=== PATIENT | female | born 1985 | race Caucasian/White ===

== ENCOUNTER 2018-02-25 00:10 | Observation (INO) | payer OTHER ==
[2018-02-13 16:05] LABS: PLATELET COUNT, AUTOMATED 275 K/uL (150-450)
[~2018-02-25] VITALS: Ht 160 cm; Wt 77.1 kg
[2018-02-25] VITALS (14 sets, daily range): BP systolic 107–129; BP diastolic 57–102
[~2018-02-25 00:10] MED LIST: AZIT-9 PO; BUTA-324 PO; D-ME118S34 PO; DOCU-416 PO; DOXY150T6 PO; HYDR2TAB4 PO; IBU600 PO; IBUP800T37 PO; METH0.2T6 PO; MULT1TAB64 PO; NITR-105 PO; OXYC-865 PO; PHEN200T32 PO; PNV1TABL92 PO; TRA50 PO; cefOXitin/DEX(*) 2GM/50ML PREM 50 ML IVPB ONE
[2018-02-25 06:30] LABS: PLATELET COUNT, AUTOMATED 281 K/uL (150-450)
[2018-02-25] MEDS ORDERED: NORMOSOL R SOLN(*) 1000 ML BAG 1,000 ML IV PRN (06:30)
[2018-02-25] MEDS ORDERED: cefOXitin/DEX(*) 2GM/50ML PREM 50 ML IVPB ONE (06:30)
[2018-02-25] MEDS ORDERED: MIDAZOLAM 2 MG/2 ML VIAL IVP PRN (06:30)
[2018-02-25] MEDS ORDERED: LIDOCAINE/SOD BICARB 8.4% SYR ID ONE (06:30)
[2018-02-25] MEDS ORDERED: FAMOTIDINE 20 MG TAB PO ONE (06:30)
[2018-02-25] MEDS ORDERED: ROCURONIUM BROM 10 MG/ML 10 ML ONE (06:51)
[2018-02-25] MEDS ORDERED: PROPOFOL EMUL(*) 10MG/ML 20 ML 20 ML ONE (06:51)
[2018-02-25] MEDS ORDERED: METOCLOPRAMIDE 10 MG/2 ML SDV ONE (06:51)
[2018-02-25] MEDS ORDERED: DEXAMETHASONE SOD 4 MG/ML VIAL ONE (06:51)
[2018-02-25] MEDS ORDERED: fentaNYL CITR 250 MCG/5 ML AMP ONE (06:51)
[2018-02-25] MEDS ORDERED: ONDANSETRON 4 MG/2 ML VIAL ONE (06:51)
[2018-02-25] MEDS ORDERED: LIDOCAINE MPF 1% 5 ML VIAL ONE (06:51)
[2018-02-25] MEDS ORDERED: ROPIVACAINE 0.2% 20 ML VIAL ONE (06:56)
[2018-02-25] MEDS ORDERED: ACETAMINOPHEN(*)1000 MG/100 ML 100 ML IVPB ONE (07:21)
[2018-02-25] MEDS ORDERED: SUGAMMADEX SOD 200 MG/2 ML SDV ONE (08:05)
[2018-02-25] MEDS ORDERED: MANNITOL* (20%)100 GM/500ML BG 500 ML IVPB ONE (09:30)
[2018-02-25] MEDS ORDERED: PROMETHAZINE 25 MG/ML 1 ML AMP IVP PRN (10:00)
[2018-02-25] MEDS ORDERED: ACETAMINOPHEN 325 MG TAB PO PRN (10:00)
[2018-02-25] MEDS ORDERED: ONDANSETRON 4 MG/2 ML VIAL IV PRN (10:00)
[2018-02-25] MEDS ORDERED: HYDROmorphone HCL 2 MG TAB PO PRN (10:00)
[2018-02-25] MEDS ORDERED: SIMETHICONE 80 MG CHEW CHEW PRN (10:00)
[2018-02-25] MEDS ORDERED: DOCU-416 PO (10:02)
[2018-02-25] MEDS ORDERED: OXYC-865 PO (10:02)
[2018-02-25] MEDS ORDERED: IBUP800T37 PO (10:02)
--- NOTE | 2018-02-25 10:02 | Post Operative Note ---
Operative Note - CORRECTIONAL MEDICINE PHYSICIAN Operative Day Date: Feb 25, 2018 Time: 10:00 Physicians Surgeon: Kelby Veneer Press Operator: Cesar Anesthesia: GETA Diagnosis Pre-Op Diagnosis: Dysmenorrhea RLQ abdominal pain Post-Op Diagnosis: same Procedure Findings: adhesion to rlq anterior abdomen Procedure(s): RATLH Bilateral salpingectomy diagnostic cystoscopy Specimen Removed:(Maybe N/A): uterus, tubes Complications: none #[id number] Fluids Fluids: 1500 ml Estimated Blood Loss: minimal Dictated Date OP Note Dictated: Feb 25, 2018 Time OP Note Dictated: 10:01 Copies to: NYLA SHORE MD ; NYLA SHORE MD Feb 25, 2018 10:02
[2018-02-25] MEDS ORDERED: fentaNYL CITR 100 MCG/2 ML AMP ONE (10:07)
[2018-02-25] MEDS ORDERED: KETOROLAC 30 MG/ML VIAL ONE (10:08)
[2018-02-25] MEDS ORDERED: SCOP1PAT16 (10:21)
[2018-02-25] MEDS ORDERED: oxyCODONE HCL 5 MG CAP PO ONE (12:00)
[2018-02-25] MEDS: DLR(*) 1000 ML BAG 1,000 ML IV PRN ×2 (12:01→18:17)
--- NOTE | 2018-02-25 12:13 | OPERATIVE REPORT 1 ---
EVENT DATE: February 25, 2018 SURGEON: Mihir Eldridge MD ANESTHESIOLOGIST: [*] ANESTHESIA: [*] SIZE TESTER: [*] PREOPERATIVE DIAGNOSIS 1. Secondary dysmenorrhea. 2. Abdominal pain, right lower quadrant. PROCEDURE PERFORMED 1. Robotic-assisted total laparoscopic hysterectomy. 2. Bilateral salpingectomy. 3. Laparoscopic adhesiolysis. 4. Diagnostic cystoscopy. FINDINGS Upon inspecting the abdomen, there was an adhesion of the omentum to the right lower quadrant anterior abdominal wall, normal appearing ovaries bilaterally, although polycystic in appearance, with a thickened and dense white ovarian capsule appearance. PROCEDURE IN DETAIL The patient was brought to the operating room, IV antibiotics running and placed in the dorsal supine position on the operating table. She was placed under general endotracheal anesthesia and moved to the dorsal lithotomy position. She was then prepped and draped in the usual sterile fashion. Weighted speculum was placed in the vagina. The cervix was grasped on the anterior lip with a single-tooth tenaculum. It was carefully sounded to a depth of 7 cm, anteverted and dilated to a size 5 Hegar dilator. A large ePantry uterine manipulator was selected, assembled. The green colpotomy cup was sutured against the cervix while the introducer was placed in the uterus and the bulb inflated. The blue NuMo cup was approximated against the colpotomy cup and secured in place. All other instruments were then removed. Seymour catheter was placed to dependent drainage. The legs were brought back to the supine position. Gloves were changed. We proceeded laparoscopically by marking the target anatomy 12 cm above, creating the umbilical incision approximately 2 cm above the umbilicus. It was infiltrated with 0.2% Naropin. An 8 mm stab incision was made. Towel clips were placed to help elevate the abdominal wall. Veress needle was passed through this incision while elevating the anterior abdominal wall and pneumoperitoneum was created to an intra-abdominal pressure of 20 mmHg, which was reduced to 15 once all ports had been placed. The Veress needle removed. An 8 mm bladeless robotic trocar was passed through this incision and into the abdomen under direct visualization with a scope. This was performed atraumatically. The abdomen and pelvis were surveyed with the above findings noted. Additional ports were placed with two 8 mm robotic ports left lateral of the umbilical incision and two right lateral of the umbilical incision. The most left lateral incision was an clinical trial assistant port. All trocars were then placed under direct visualization and without incident under similar technique. At this point, the patient was moved to Trendelenburg position and the bowel was swept away. The adhesion was inspected and found to be purely omentum. Therefore, the robot was brought overlying the patient and locked in place. The umbilical port was docked and the camera was placed and a targeting procedure was performed and passed. Each additional arm was then docked and instruments were placed and introduced into the abdomen under direct visualization and without incident. At this point, I scrubbed out and presented to the console. The hysterectomy proceeded as follows: The adhesion of the omentum was taken down using bipolar coag as well as monopolar coag along the abdominal wall surface and once freed that omental piece was swept away. There was no visible bleeding. The right fallopian tube was grasped and elevated. It was dissected away from the ovary and the mesosalpinx using the vessel sealer up to the uteroovarian ligament, which was doubly cauterized and transected with the vessel sealer. The round ligament was then cauterized and transected and the broad ligament was entered and into anterior and posterior leaflets. The anterior leaflet was dissected along the anterior uterus, creating a bowel reflection below the colpotomy cup. Posteriorly, this was performed down to the uterosacral ligament and then the uterine vasculature was skeletonized. The uterine vessels were taken by doubly cauterizing at a perpendicular angle and transecting followed by parallel bites along the lateral uterus down to the colpotomy cup. The same procedure was followed on the contralateral side in likewise fashion taking down the fallopian tube on that side, cauterizing and transecting the uteroovarian ligament followed by the round ligament and the broad ligament and anterior posterior leaflets. The anterior dissection was completed followed by the posterior leaflet taking down to the uterosacral ligament and the uterine vessels were skeletonized. In likewise fashion, they were cauterized at a perpendicular angle and transected followed by parallel bites along the length of the lateral uterus to the colpotomy cup. Colpotomy incision was then performed anteriorly to the green colpotomy cup and this was taken circumferentially around to the uterus, completing the vaginal incision. The uterus was then excised and sent to pathology. A bulb grenade was placed in the vagina to maintain the pneumoperitoneum and the vaginal cuff was closed as follows: There was a light bleeder on the right pedicle which received bipolar coag for hemostasis. The angles were sutured with an 0 Vicryl in a [id number]-viibl fashion to the uterosacral ligament on the ipsilateral side. This was performed on the contralateral side and then the remaining vaginal cuff was closed with a 2-0 V- Loc suture and a running locking stitch. There was excellent hemostasis and closure of the vagina at that point. No visible complications. The pelvis was irrigated and suctioned dry. I scrubbed back into the case to do cystoscopy. The Seymour catheter was removed and diagnostic cystoscopy was performed with 20% Mannitol distention fluid. Both ureters were found to be protected and active with excellent urine jets into the bladder bilaterally, confirming ureteral patency. No visible bladder injuries. Therefore, the bladder was again drained and all instruments were then removed from the vagina. Skin incisions were repaired with 4-0 Monocryl simple subdermal and covered with Dermabond skin adhesive. She did have a right labial intradermal cyst that she had asked me to look at, which received incision and drainage using #18 gauge needle with purulent and sebaceous material expressed. Otherwise, no further procedures or issues were observed. She was awakened from general anesthesia and taken to recovery in stable condition. Sponge, lap, needle and instrument counts were all correct x3. MTDD
[2018-02-25] MEDS: KETOROLAC 30 MG/ML VIAL IVP SCH ×2 (16:06→22:07)
[2018-02-25] MEDS: TRIMETH/SULFA DS 160-800MG TAB PO SCH (20:37)
[2018-02-25] MEDS: FAMOTIDINE 20 MG TAB PO SCH (20:37)
[2018-02-25] MEDS: DOCUSATE CALCIUM 240 MG CAP PO SCH (20:37)
[2018-02-25] MEDS ORDERED: ZOLPIDEM TARTRATE 10 MG TAB PO PRN (21:00)
[2018-02-26] MEDS: DLR(*) 1000 ML BAG 1,000 ML IV PRN (00:51)
[2018-02-26 03:39] VITALS: BP 107/72
[2018-02-26] MEDS: KETOROLAC 30 MG/ML VIAL IVP SCH (03:45)
[2018-02-26 06:08] LABS: PLATELET COUNT, AUTOMATED 236 K/uL (150-450)
[2018-02-26 07:30] VITALS: BP 117/79
--- NOTE | 2018-02-26 08:10 | OB/GYN Progress Note ---
OB Subjective Progress Notes Subjective Feeling pretty well. Ambulating well and voiding without difficulty. Pain well controlled with Percocet. GI: NEG Nausea : Voiding Well Pain: Mild OB Objective Physical Exam Vital Signs Date Time Temp Pulse Resp B/P (MAP) Pulse Ox O2 Delivery O2 Flow Rate FiO2 02/26/18 06:32 93 02/26/18 05:02 75 16 Room Air 02/26/18 03:39 98.5 107/72 (84) 0.5 Intake and Output 02/26/18 07:00 Intake Total 4131 ml Output Total 2325 ml Balance 1806 ml Intake Oral 426 ml IV Total 3705 ml Output Urine Total 2325 ml # Voids 7 General Appearance: Alert/Awake/No Acute Distress Cardiovascular: Normal Rhythm & Peripheral Pulses Respiratory: No Respiratory Distress Abdomen: Soft, Non-Tender, Non-Distended Incision: Clean, Dry, Intact, Dermabond Extremities: No Cyanosis,Clubbing or Edema Integumentary: Skin Intact without Lesions or Rash Psychological: Alert & Oriented X3, Appropriate Mood & Affect Result Diagram: 02/26/18 0555 Assessment and Plan 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 Call with concerns or problems. (2) History of robot-assisted laparoscopic hysterectomy (3) UTI (urinary tract infection) Assessment & Plan: Continue abx x 5 days total. Problem Qualifiers (1) UTI (urinary tract infection): Urinary tract infection type: acute cystitis Hematuria presence: with hematuria Qualified Codes: N30.01 - Acute cystitis with hematuria NYLA SHORE MD Feb 26, 2018 08:10
[2018-02-26] MEDS ORDERED: SULF1TAB24 PO (08:12)
--- NOTE | 2018-02-26 08:13 | Short(Outpt) Discharge Summary ---
Discharge Summary Reason for Hosp/Final Diag: (1) Other specified aftercare following surgery Hospital Course & Plan: Reviewed discharge instructions: activity limitations, expected healing time, return visit in 2 weeks. Call with concerns or problems. (2) History of robot-assisted laparoscopic hysterectomy (3) UTI (urinary tract infection) Hospital Course & Plan: Continue abx x 5 days total. Departure Discharge to: Home, Self Care Discharge Instructions Home Meds Active Scripts Oxycodone Hcl/Acetaminophen (PERCOCET 5-325 MG TABLET) 1 Each Tablet, 1 EACH PO Q4-6H PRN for PAIN, #20 TAB 0 Refills TAKE 1 TABLET NEEDED FOR PAIN - NO CLOSER THAN EVERY 4-6 HOURS. 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
[2018-02-26] MEDS: FAMOTIDINE 20 MG TAB PO SCH (08:49)
[2018-02-26] MEDS: TRIMETH/SULFA DS 160-800MG TAB PO SCH (08:49)
[2018-02-26] MEDS: DOCUSATE CALCIUM 240 MG CAP PO SCH (08:50)
[2018-02-26] MEDS ORDERED: INFLUENZA VIRUS VAC 0.5ML SYR IM ONLY ONE (10:00)
[2018-02-26] MEDS ORDERED: IBUPROFEN 800 MG TAB PO PRN (10:00)
== END 2018-02-26 08:06 | disposition home or self-care (01) ==
LOC: OR 00:10 → PED 11:00 → INTOOBSV 11:00
PROVIDERS: ADMIT Obstetrics & Gynecology; ATTEND Obstetrics & Gynecology
DX: N94.5 Secondary dysmenorrhea (principal); K66.0 Peritoneal adhesions (postprocedural) (postinfection); N30.01 Acute cystitis with hematuria
CPT/HCPCS: 36415; 58575; 81001; 81025; 84703; 85014; 85018; 85025; 88307; G0378; J0131; J0694; J1100; J1885; J2001; J2250; J2405; J2704; J2765; J2795; J3010; S2900

== ENCOUNTER → 2018-08-14 | Outpatient (CLI) | payer OTHER ==
[~2018-08-14] MED LIST changes: +GADOBENATE 529MG/1ML 15ML VIAL IVP ONE; +SCOP1PAT16; +SULF1TAB24 PO; -cefOXitin/DEX(*) 2GM/50ML PREM 50 ML IVPB ONE
--- NOTE | 2018-08-14 13:48 | RADIOLOGY IMAGING REPORT ---
[place] [facility] [place] Sheryl Donahue : 1985 MR: [id number] V: [id number] EXAM DATE: [id number] ORDERING PHYSICIAN: MARIO SUÁREZ TECHNOLOGIST: [place] [facility] [place]: Sheryl Donahue : 1985 Visit/Account:[id number] Date of Sevice: 08/14/2018 Examination: MR brain without and with contrast History: Headache Comparison: None Technique: Multiplane MR imaging was performed through the brain without and with contrast. 15 cc IV multihance was administered. Findings: Diffusion: None Ventricles: Normal Midline shift: None Extraxial fluid: None Midline craniocervical structures: Normal Parenchyma: Normal Enhancement: No pathologic enhancement Vascular flow voids: Normal Orbits and paranasal sinuses: Normal Other: No significant additional finding. Impression: Normal brain MR without and with contrast. Report Dictated By: Chito Hope MD at 08/14/2018 1:38 PM Report E-Signed By: Chito Hope MD at 08/14/2018 1:43 PM WSN:[id number]
== END ==
LOC: MRI 01:11
PROVIDERS: ATTEND Nurse Practitioner Family
DX: G44.221 Chronic tension-type headache, intractable (principal); G43.009 Migraine without aura, not intractable, without status migrainosus
CPT/HCPCS: 70553; A9577